=== PATIENT | female | born 1985 | race African-American/Black ===

== ENCOUNTER 2021-11-24 11:55 | Emergency (ER) | payer OTHER ==
[2021-11-24 12:18] VITALS: BP 127/89; PULSE 83; TEMP 97.8; BMI 32.7
[2021-11-24] MEDS ORDERED: KETOROLAC TROMETHAMINE 60 MG/2 ML VIAL IM ONE (13:48)
[2021-11-24] MEDS ORDERED: KETOROLAC TROMETHAMINE 60 MG/2 ML VIAL ONE (14:04)
== END 2021-11-24 17:05 | disposition home or self-care (01) ==
LOC: JERFT 11:55
PROC: 0HQFXZZ Repair Right Hand Skin, External Approach (ICD-10-PCS; principal; 2021-11-24)
PROC: 3E023GC Introduction of Other Therapeutic Substance into Muscle, Percutaneous Approach (ICD-10-PCS; 2021-11-24)
DX: S16.1XXA Strain of muscle, fascia and tendon at neck level, initial encounter (principal); S61.411A Laceration without foreign body of right hand, initial encounter; V49.40XA Driver injured in collision with unspecified motor vehicles in traffic accident, initial encounter
CPT/HCPCS: 70450-TC; 72125-TC; 73130-TC-RT-FY; 99284-25